=== PATIENT | female | born 1980 | race Caucasian/White ===

== ENCOUNTER 2017-02-04 13:01 | Emergency (ER) | payer OTHER ==
[~2017-02-04] VITALS: Ht 170.1 cm; Wt 54.4 kg
--- NOTE | ~2017-02-04 | EKG ---
[place], [place] ELECTROCARDIOGRAM REPORT NAME: LEATHA PEDRO UNIT #: [id number] ROOM: DOCTOR: OPAL TRINIDAD MD BIRTHDATE: [birth year] DOS: 02/04/2017 TIME: 1403 hours. FINDINGS: 1. Normal sinus rhythm. 2. Rightward axis. 3. Normal electrocardiogram. OPAL TRINIDAD MD CM:EKGRPT:ELECTROCARDIOGRAM REPORT [id number] OPAL TRINIDAD MD
[~2017-02-04 13:01] MED LIST: ANTIVERT/2525 M1 PO
[2017-02-04 13:15] VITALS: BP 122/67
[2017-02-04 13:51] LABS: BASO # 0.1 10*3/uL (0.0-0.1); BASO % 0.5 % (0.0-1.0); EOS # 0.1 10*3/uL (0.0-0.4); EOS % 0.8 % (1.0-4.0); HEMATOCRIT 42.9 % (37.0-47.0); HEMOGLOBIN 14.4 g/dl (12.0-16.0); LYMPH % 21.6 % (27.0-41.0); MEAN CELL VOLUME 93.7 fl (81.0-99.0); MEAN CORPUSCULAR HGB 31.4 pg (27.0-31.0); MEAN CORPUSCULAR HGB CONC 33.6 g/dl (33.0-37.0); MEAN PLATELET VOLUME 9.7 fl (9.6-12.3); MONO # 0.4 10*3/uL (0.1-1.0); MONO % 4.7 % (3.0-9.0); NEUT # 6.6 10*3/uL (2.3-7.9); NEUT % 72.2 % (47.0-73.0); PLATELET COUNT AUTOMATED 199 10*3/uL (130-400); RED BLOOD COUNT 4.58 10*6/uL (4.10-5.10); RED CELL DISTRI WIDTH 11.6 % (0-14.5); WHITE BLOOD COUNT 9.2 10*3/uL (4.8-10.8)
[2017-02-04 14:04] VITALS: BP 116/72
[2017-02-04 14:14] LABS: BUN 7 mg/dl (7-24); CARBON DIOXIDE 27 mmol/L (21-32); CHLORIDE 106 mmol/L (98-107); EST GLOM FILT AFRICAN AMERICAN > 60 ml/min; GLUCOSE 96 mg/dL (65-99); SODIUM 140 mmol/L (136-145)
[2017-02-04 14:16] LABS: TROPONIN I < 0.015 ng/ml (<0.045)
== END 2017-02-04 14:44 | disposition left against medical advice (07) ==
LOC: ED 13:01 → EDHOLD 14:46 → ED 14:46
PROVIDERS: Emergency Medicine
DX: R07.9 Chest pain, unspecified (principal); F17.200 Nicotine dependence, unspecified, uncomplicated; Z98.890 Other specified postprocedural states; Z88.6 Allergy status to analgesic agent